=== PATIENT | male | born 1950 | race Asian ===

== ENCOUNTER → 2017-01-12 | Outpatient (CLI) | payer MEDICARE, OTHER | END | disposition home or self-care (01) | LOC: RADMN 16:09 | PROVIDERS: ATTEND Internal Medicine | DX: R06.02 Shortness of breath (principal) | CPT/HCPCS: 71020 ==

== ENCOUNTER → 2017-03-25 | Outpatient (CLI) | payer MEDICARE, OTHER ==
[2017-03-25 12:09] LABS: BILIRUBIN,TOTAL 0.9 mg/dL (0.1-1.0); CALCIUM, TOTAL 9.3 mg/dL (8.8-10.5); CREATININE 1.52 mg/dL (0.60-1.30); POTASSIUM 3.8 mmol/L (3.5-5.1); TOTAL PROTEIN, SERUM 8.7 g/dL (6.4-8.2)
== END | disposition home or self-care (01) ==
LOC: LABMN 11:41
PROVIDERS: ATTEND Internal Medicine Cardiovascular Disease
DX: I11.0 Hypertensive heart disease with heart failure (principal); I50.9 Heart failure, unspecified; E11.8 Type 2 diabetes mellitus with unspecified complications; E55.9 Vitamin D deficiency, unspecified

== ENCOUNTER → 2017-05-18 | Outpatient (CLI) | payer MEDICARE, OTHER ==
[2017-05-18 11:30] LABS: CALCIUM, TOTAL 9.3 mg/dL (8.8-10.5); CREATININE 1.5 mg/dL (0.60-1.30); POTASSIUM 3.5 mmol/L (3.5-5.1)
== END | disposition home or self-care (01) ==
LOC: LABPV 09:50
PROVIDERS: ATTEND Internal Medicine Cardiovascular Disease
DX: I11.0 Hypertensive heart disease with heart failure (principal); I50.9 Heart failure, unspecified; E11.65 Type 2 diabetes mellitus with hyperglycemia; E55.9 Vitamin D deficiency, unspecified

== ENCOUNTER → 2020-07-23 | Outpatient (CLI) | payer MEDICARE, OTHER | END | disposition home or self-care (01) | LOC: RADMN 13:25 | PROVIDERS: ATTEND Internal Medicine | DX: I51.7 Cardiomegaly (principal) | CPT/HCPCS: 71046; 71046-TC ==

== ENCOUNTER → 2020-12-16 | Outpatient (CLI) | payer MEDICARE, OTHER | END | disposition home or self-care (01) | LOC: RADPV 14:51 | PROVIDERS: ATTEND Internal Medicine | DX: I70.0 Atherosclerosis of aorta (principal); R91.8 Other nonspecific abnormal finding of lung field | CPT/HCPCS: 71046 ==

== ENCOUNTER 2024-02-24 16:01 | Emergency (ER) | payer MEDICARE, OTHER ==
[~2024-02-24] VITALS: Ht 170.2 cm; Wt 81.8 kg
[2024-02-24 16:05] VITALS: TEMP 98.1
[2024-02-24] MEDS ORDERED: ISOS30TA92 PO (16:14)
[2024-02-24] MEDS ORDERED: EMPA25TA3 PO (16:14)
[2024-02-24] MEDS ORDERED: HYDR25TA2 PO (16:14)
[2024-02-24] MEDS ORDERED: ATOR-2 PO (16:14)
[2024-02-24] MEDS ORDERED: SACU1TAB PO (16:14)
[2024-02-24] MEDS ORDERED: ASPI-1444 PO (16:14)
[2024-02-24] MEDS ORDERED: ALOG25TA PO (16:14)
[2024-02-24] MEDS ORDERED: ALLO100T PO (16:14)
[2024-02-24] MEDS ORDERED: PIOG15TA6 PO (16:14)
[2024-02-24] MEDS ORDERED: HYDR25TA84 PO (16:14)
[2024-02-24] MEDS: LIDOCAINE 1%/EPI 1:200,000/PF 10 ML VIAL SQ ONE (17:42)
[2024-02-24] MEDS: PERTUSS(ACELL),DIPH,TET/PF 0.5 ML SYRINGE [ADULT] IM. ONE (17:43)
[2024-02-24 18:20] VITALS: BP 143/90; PULSE 67; RESP 16
== END 2024-02-24 18:31 | disposition home or self-care (01) ==
LOC: EMS 16:01
DX: S01.81XA Laceration without foreign body of other part of head, initial encounter (principal); E11.9 Type 2 diabetes mellitus without complications; I11.0 Hypertensive heart disease with heart failure; I50.9 Heart failure, unspecified; W01.0XXA Fall on same level from slipping, tripping and stumbling without subsequent striking against object, initial encounter; Y93.89 Activity, other specified; Y92.89 Other specified places as the place of occurrence of the external cause; Y99.8 Other external cause status
CPT/HCPCS: 99283; 90715; 90471; 12013; J3490

== ENCOUNTER 2024-03-01 09:33 | Emergency (ER) | payer MEDICARE, OTHER ==
[~2024-03-01] VITALS: Ht 165.1 cm; Wt 85.9 kg
[~2024-03-01 09:33] MED LIST: ALLO100T PO; ALOG25TA PO; ASPI-1444 PO; ATOR-2 PO; EMPA25TA3 PO; HYDR25TA2 PO; HYDR25TA84 PO; ISOS30TA92 PO; PIOG15TA6 PO; SACU1TAB PO
[2024-03-01 09:38] VITALS: TEMP 97.6
[2024-03-01] MEDS: KETOROLAC TROMETHAMINE 60 MG/2 ML VIAL IM ONE (11:11)
[2024-03-01 11:33] VITALS: BP 133/72; PULSE 65; RESP 16
== END 2024-03-01 12:17 | disposition home or self-care (01) ==
LOC: EMS 09:33
DX: S83.92XA Sprain of unspecified site of left knee, initial encounter (principal); E11.9 Type 2 diabetes mellitus without complications; I25.10 Atherosclerotic heart disease of native coronary artery without angina pectoris; I11.0 Hypertensive heart disease with heart failure; Z87.891 Personal history of nicotine dependence; W01.0XXA Fall on same level from slipping, tripping and stumbling without subsequent striking against object, initial encounter; Y93.89 Activity, other specified; Y92.89 Other specified places as the place of occurrence of the external cause; Y99.8 Other external cause status
CPT/HCPCS: 99283; 29505; 82962; 73562; 96372; J1885